=== PATIENT | male | born 1960 | race Caucasian/White ===

== ENCOUNTER 2025-04-08 13:05 | Emergency (ER) | payer OTHER, SELFPAY ==
[2025-04-08 13:22] VITALS: BP 145/89; PULSE 84; RESP 17; TEMP 36.6; O2SAT 99; BMI 24.0
--- NOTE | 2025-04-08 14:33 | ED.WOUNDLAC ---
HPI - Wound/Laceration <Mayuri Witt PA-C - Last Filed: 04/08/25 17:54> General Chief Complaint: Wound/Laceration Stated Complaint: Stitches to right arm Time Seen by Provider: 04/08/25 13:18 Source: patient Mode of arrival: Ambulatory History of Present Illness HPI narrative: 65-year-old male here today for a laceration to his right forearm. This occurred around noon today. Patient's states he had a dizzy spell while working on an ice chest at his house and he slipped and cut his arm. His and the patient noted that he has been having these episodes of vertigo for about a year and he is already followed by neurology for these. There was nothing different than usual about this episode today. Patient initially tried to stop the bleeding by bandaging the wound and applying liquid bandage, but then he realized that he probably needs stitches so he came in instead. Patient's last tetanus shot was 5-6 years ago. He otherwise feels well right now with no headache, vision changes, dizziness, feeling unsteady, or any other symptoms. Related Data Allergies Allergy/AdvReac Type Severity Reaction Status Date / Time amoxicillin Allergy Mild rash Verified 04/08/25 13:22 Review of Systems <Mayuri Witt PA-C - Last Filed: 04/08/25 17:54> Review of Systems ROS Unobtainable: All systems reviewed & are unremarkable except as noted in HPI and below Patient History <aMyuri Witt PA-C - Last Filed: 04/08/25 17:54> Social History Smoking Status: Unknown if ever smoked Smoking Status: Unknown if ever smoked Exam <Mayuri Witt PA-C - Last Filed: 04/08/25 17:54> Narrative Exam Narrative: GENERAL: Well-developed, well-nourished, appears stated age. In no acute distress HEAD: Atraumatic. Normocephalic. EYES: Pupils equal round and reactive. Extraocular motions intact. No scleral icterus. No injection or drainage. ENT: Nose without bleeding, purulent drainage. Airway patent. NECK: Trachea midline. Non tender RESPIRATORY: Respiratory rate and effort normal EXTREMITIES: No edema or joint tenderness. NEURO: AOx3. SKIN: Right forearm with 2 lacerations, 1 is 3 cm and linear, and the other is 1 cm and linear. Both superficial just through the subcutaneous layer. Moderate amount of bleeding when bandage removed. No foreign body noted. Initial Vital Signs Initial Vital Signs: Vital Signs Temperature 98 F 04/08/25 13:22 Pulse Rate 84 04/08/25 13:22 Respiratory Rate 17 04/08/25 13:22 Blood Pressure 145/89 H 04/08/25 13:22 Pulse Oximetry 99 04/08/25 13:22 Oxygen Delivery Method Room Air 04/08/25 13:22 <Joshua Anthony, - Last Filed: 04/11/25 23:24> Initial Vital Signs Initial Vital Signs: Vital Signs Temperature 98 F 04/08/25 13:22 Pulse Rate 84 04/08/25 13:22 Respiratory Rate 17 04/08/25 13:22 Blood Pressure 145/89 H 04/08/25 13:22 Pulse Oximetry 99 04/08/25 13:22 Oxygen Delivery Method Room Air 04/08/25 13:22 Procedures <Mayuri Witt PA-C - Last Filed: 04/08/25 17:54> Laceration Repair Laceration 1: Site: upper extremity (Right forearm) Size (cm): 3 Description: linear Depth: simple, single layer Local Anesthetic: lidocaine 1% Amount of anesthesia used (mL): 2 Pre-repair: irrigated extensively Skin layer closed with: nylon Skin layer suture size: 4-0 Number of sutures: 5 Technique: simple, interrupted Laceration 2: Site: upper extremity (Right forearm) Size (cm): 1 Description: linear Depth: simple, single layer Local Anesthetic: lidocaine 1% Amount of anesthesia used (mL): 0.5 Pre-repair: irrigated extensively Skin layer closed with: nylon Skin layer suture size: 5-0 Number of sutures: 2 Technique: simple, interrupted Course <GIOVANNI Estrada Last Filed: 04/08/25 17:54> Orders Ordered: Discontinued Medications Diphtheria/Tetanus/Acell Pertussis (Tet,Diph,Pertuss(Acell),Vac/Pf 0.5 Ml Syringe) 0.5 ml IM .ONCE ONE Stop: 04/08/25 13:27 Last Admin: 04/08/25 14:59 Dose: 0.5 ml Documented By: JUDY Lidocaine HCl (Lidocaine 1% (Pf) 5 Ml) 5 ml INJ NOW ONE Stop: 04/08/25 14:34 Last Admin: 04/08/25 15:00 Dose: 5 ml Documented By: JUDY Vital Signs Vital signs: Vital Signs - 8 hr 04/08/25 13:22 Temperature 98 F Pulse Rate 84 Respiratory Rate 17 Blood Pressure 145/89 H Pulse Oximetry 99 Oxygen Delivery Method Room Air <Joshua Anthony DO - Last Filed: 04/11/25 23:24> Orders Ordered: Discontinued Medications Diphtheria/Tetanus/Acell Pertussis (Tet,Diph,Pertuss(Acell),Vac/Pf 0.5 Ml Syringe) 0.5 ml IM .ONCE ONE Stop: 04/08/25 13:27 Last Admin: 04/08/25 14:59 Dose: 0.5 ml Documented By: JUDY Lidocaine HCl (Lidocaine 1% (Pf) 5 Ml) 5 ml INJ NOW ONE Stop: 04/08/25 14:34 Last Admin: 04/08/25 15:00 Dose: 5 ml Documented By: JUDY Vital Signs Vital signs: Vital Signs - 8 hr 04/08/25 13:22 Temperature 98 F Pulse Rate 84 Respiratory Rate 17 Blood Pressure 145/89 H Pulse Oximetry 99 Oxygen Delivery Method Room Air MDM - Wound/Laceration <Mayuri Witt PA-C - Last Filed: 04/08/25 17:54> [facility] Narrative Medical decision making narrative: This patient comes in with 2 lacerations to his right forearm, adjacent to 1 another. After removing the bandage, a moderate amount of bleeding was noted but well controlled with pressure. He sustained a 3 cm laceration and a 1 cm laceration both linear and to the subcutaneous layer without foreign body noted. Normal sensation of the upper extremity noted. Patient tolerated the laceration repair with sutures well. Seven sutures placed. Wound cleaned and bandage and patient given instructions to have sutures removed in 8-10 days. He was given thorough wound care instructions including cleansing the wound twice daily with soap and water. We discussed signs of infection and when to return or be seen for symptoms of infection. <Joshua Anthony DO - Last Filed: 04/11/25 23:24> [facility] Narrative Medical decision making narrative: This patient comes in with 2 lacerations to his right forearm, adjacent to 1 another. After removing the bandage, a moderate amount of bleeding was noted but well controlled with pressure. He sustained a 3 cm laceration and a 1 cm laceration both linear and to the subcutaneous layer without foreign body noted. Normal sensation of the upper extremity noted. Patient tolerated the laceration repair with sutures well. Seven sutures placed. Wound cleaned and bandage and patient given instructions to have sutures removed in 8-10 days. He was given thorough wound care instructions including cleansing the wound twice daily with soap and water. We discussed signs of infection and when to return or be seen for symptoms of infection. Co-sign statement: I was available for consultation during this patient's emergency department visit. This chart is being signed by myself for administrative purposes only. I do not have direct contact with this patient during this visit. They were seen independently by the APC. Discharge Plan Departure Patient Disposition: Home Clinical Impression: Laceration of right forearm without complication Qualifiers: Encounter type: initial encounter Qualified Code(s): S51.811A - Laceration without foreign body of right forearm, initial encounter Instructions: DI for Laceration Repair Activity Restrictions/Additional Instructions: Thank you for choosing us to care for you today. You were seen for a laceration on your right forearm which was repaired with 7 stitches. As discussed, please leave the bandage on until tomorrow morning and then you may remove it and wash the area gently with soap and water. Pat the area dry and replace the bandage. Please do this twice daily. After 3 days or so, you may start leaving the bandage off while sleeping to allow the area to air out. Your stitches need to be removed in approximately 8-10 days. If you notice any swelling, redness, discharge from the wound, increasing pain-these are possible signs of infection and you need to return for re-evaluation, or see your PCP or urgent Care. Stand Alone Forms: Patient Portal/API
[2025-04-08] MEDS: TET,DIPH,PERTUSS(ACELL),VAC/PF 0.5 ML SYRINGE IM (14:59)
[2025-04-08] MEDS: LIDOCAINE 1% (PF) 5 ML INJ (15:00)
[2025-04-08 15:54] VITALS: BP 143/88; PULSE 82; RESP 16; O2SAT 99
== END 2025-04-08 15:47 | disposition home or self-care (01) ==
PROVIDERS: Emergency Provider Physician Assistant
DX: S51.811A Laceration without foreign body of right forearm, initial encounter (principal); R42 Dizziness and giddiness; W01.198A Fall on same level from slipping, tripping and stumbling with subsequent striking against other object, initial encounter; Z23 Encounter for immunization
CPT/HCPCS: 12002; 90471; 99283; 99284; 90715